=== PATIENT | male | born 1945 | race Two or more races ===

== ENCOUNTER 2017-09-23 09:25 | Outpatient (CLI) | payer OTHER ==
[~2017-09-23 09:25] MED LIST: COZAAR50 MG PO; VITAMIN; VYTORIN 10/20 M1 TAB PO
== END 2017-09-23 09:37 | disposition home or self-care (01) ==
LOC: RAD 501 09:25
DX: H25.011 Cortical age-related cataract, right eye (principal); Z98.41 Cataract extraction status, right eye

== ENCOUNTER 2017-09-24 07:33 | Outpatient (CLI) | payer OTHER | END 2017-09-24 07:43 | disposition home or self-care (01) | LOC: LAB 07:33 | DX: H25.011 Cortical age-related cataract, right eye (principal); Z98.41 Cataract extraction status, right eye ==

== ENCOUNTER 2018-04-13 13:14 | Inpatient (IN) | payer OTHER ==
[~2018-04-13] VITALS: Ht 162.6 cm; Wt 72.6 kg
[2018-04-15] MEDS ORDERED: PROTONIX40 MG PO (16:39)
[2018-04-15] MEDS ORDERED: CIPRO500 MG PO (16:39)
[2018-04-15] MEDS ORDERED: ULTRACET PO (16:39)
== END 2018-04-15 17:52 | disposition home or self-care (01) | DRG 354 ==
LOC: ER 13:14 → SURH 20:20
PROC: 0WQF0ZZ Repair Abdominal Wall, Open Approach (ICD-10-PCS; principal; 2018-04-13)
PROC: BW21ZZZ Computerized Tomography (CT Scan) of Abdomen and Pelvis (ICD-10-PCS; 2018-04-13)
DX: K42.0 Umbilical hernia with obstruction, without gangrene (principal); K56.699 Other intestinal obstruction unspecified as to partial versus complete obstruction; I11.9 Hypertensive heart disease without heart failure

== ENCOUNTER 2019-05-15 10:02 | Outpatient (CLI) | payer OTHER ==
[~2019-05-15 10:02] MED LIST changes: +CIPRO500 MG PO; +PROTONIX40 MG PO; +ULTRACET PO
== END 2019-05-15 15:00 | disposition home or self-care (01) ==
LOC: MRI 10:02
DX: G25.2 Other specified forms of tremor (principal)
CPT/HCPCS: 70551

== ENCOUNTER 2020-02-27 10:04 | Outpatient (CLI) | payer OTHER | END 2020-02-27 10:07 | disposition home or self-care (01) | LOC: RAD 10:04 | PROVIDERS: ATTEND Ophthalmology | DX: R07.89 Other chest pain (principal); Z01.811 Encounter for preprocedural respiratory examination ==

== ENCOUNTER 2020-11-01 07:50 | Outpatient (CLI) | payer OTHER | END 2020-11-01 08:30 | disposition home or self-care (01) | LOC: WOUND MED 07:50 | PROVIDERS: ATTEND Specialist | DX: L98.492 Non-pressure chronic ulcer of skin of other sites with fat layer exposed (principal) | CPT/HCPCS: A4554; A4930; A6216; A6219; G0463 ==

== ENCOUNTER 2020-11-05 12:06 | Outpatient (CLI) | payer OTHER | END 2020-11-05 12:15 | disposition home or self-care (01) | LOC: WOUND MED 12:06 | PROVIDERS: ATTEND Specialist | DX: L98.492 Non-pressure chronic ulcer of skin of other sites with fat layer exposed (principal) | CPT/HCPCS: 97602; A4554; A4930; A6216; A6219 ==

== ENCOUNTER 2020-11-08 08:15 | Outpatient (CLI) | payer OTHER | END 2020-11-08 09:00 | disposition home or self-care (01) | LOC: WOUND MED 08:15 | PROVIDERS: ATTEND Specialist | DX: L98.492 Non-pressure chronic ulcer of skin of other sites with fat layer exposed (principal) | CPT/HCPCS: 11042; A4554; A4930; A6021; A6216; A6219 ==

== ENCOUNTER 2020-11-15 08:03 | Outpatient (CLI) | payer OTHER | END 2020-11-15 08:30 | disposition home or self-care (01) | LOC: WOUND MED 08:03 | PROVIDERS: ATTEND Specialist | DX: L98.492 Non-pressure chronic ulcer of skin of other sites with fat layer exposed (principal) | CPT/HCPCS: 11042; A4554; A4930; A6021; A6216; A6219 ==

== ENCOUNTER 2020-11-22 08:10 | Outpatient (CLI) | payer OTHER | END 2020-11-22 14:07 | disposition home or self-care (01) | LOC: WOUND MED 08:10 | PROVIDERS: ATTEND Specialist | DX: L98.492 Non-pressure chronic ulcer of skin of other sites with fat layer exposed (principal) | CPT/HCPCS: 11042; A4554; A4930; A6216; A6219 ==

== ENCOUNTER 2020-12-06 08:07 | Outpatient (CLI) | payer OTHER | END 2020-12-06 09:00 | disposition home or self-care (01) | LOC: WOUND MED 08:07 | PROVIDERS: ATTEND Specialist | DX: L98.492 Non-pressure chronic ulcer of skin of other sites with fat layer exposed (principal) | CPT/HCPCS: 11042; A4554; A4930; A6212; A6216; A6219 ==

== ENCOUNTER → 2020-12-13 | Outpatient (CLI) | payer OTHER | END | disposition home or self-care (01) | LOC: WOUND MED 07:45 | PROVIDERS: ATTEND Specialist | DX: L98.492 Non-pressure chronic ulcer of skin of other sites with fat layer exposed (principal) | CPT/HCPCS: G0463; A4554; A4930; A6216 ==

== ENCOUNTER 2021-02-11 11:12 | Outpatient (CLI) | payer OTHER | END 2021-02-11 11:15 | disposition home or self-care (01) | LOC: LAB 11:12 | PROVIDERS: ATTEND Radiology Diagnostic Radiology | DX: N42.0 Calculus of prostate (principal); Z51.81 Encounter for therapeutic drug level monitoring ==

== ENCOUNTER 2021-02-11 12:01 | Outpatient (CLI) | payer OTHER | END 2021-02-11 14:14 | disposition home or self-care (01) | LOC: TOM 12:01 | DX: N42.0 Calculus of prostate (principal) | CPT/HCPCS: 72193; Q9965 ==

== ENCOUNTER 2021-11-26 11:03 | Outpatient (CLI) | payer OTHER | END 2021-11-26 11:04 | disposition home or self-care (01) | LOC: NUCLEAR 11:03 | PROVIDERS: ATTEND Internal Medicine | DX: I00 Rheumatic fever without heart involvement (principal) ==

== ENCOUNTER 2022-04-07 11:59 | Outpatient (CLI) | payer OTHER | END 2022-04-07 12:08 | disposition home or self-care (01) | LOC: RAD 11:59 | PROVIDERS: ATTEND Internal Medicine | DX: M54.17 Radiculopathy, lumbosacral region (principal) ==

== ENCOUNTER 2022-04-09 09:03 | Outpatient (CLI) | payer OTHER | END 2022-04-09 09:04 | disposition home or self-care (01) | LOC: NUCLEAR 09:03 | PROVIDERS: ATTEND Internal Medicine | DX: R00.1 Bradycardia, unspecified (principal) ==

== ENCOUNTER 2022-09-09 15:41 | Outpatient (CLI) | payer OTHER | END 2022-09-09 15:45 | disposition home or self-care (01) | LOC: RAD 15:41 | PROVIDERS: ATTEND Internal Medicine | DX: J44.1 Chronic obstructive pulmonary disease with (acute) exacerbation (principal) ==

== ENCOUNTER 2023-02-24 11:47 | Outpatient (CLI) | payer OTHER | END 2023-02-24 11:52 | disposition home or self-care (01) | LOC: RAD 11:47 | PROVIDERS: ATTEND Internal Medicine Gastroenterology | DX: K56.41 Fecal impaction (principal) ==

== ENCOUNTER 2023-04-05 08:51 | Outpatient (CLI) | payer OTHER | END 2023-04-05 09:05 | disposition home or self-care (01) | LOC: TOM 08:51 | PROVIDERS: ATTEND Internal Medicine Gastroenterology | DX: K63.5 Polyp of colon (principal) ==

== ENCOUNTER 2023-08-04 10:37 | Outpatient (CLI) | payer OTHER | END 2023-08-04 10:38 | disposition home or self-care (01) | LOC: RAD 10:37 | PROVIDERS: ATTEND Internal Medicine Hematology & Oncology | DX: C61 Malignant neoplasm of prostate (principal); R05.8 Other specified cough ==

== ENCOUNTER 2023-12-01 08:27 | Outpatient (CLI) | payer OTHER | END 2023-12-01 08:33 | disposition home or self-care (01) | LOC: TOM 08:27 | PROVIDERS: ATTEND Internal Medicine | DX: R10.9 Unspecified abdominal pain (principal) ==

== ENCOUNTER 2024-04-13 13:38 | Outpatient (CLI) | payer OTHER | END 2024-04-13 13:40 | disposition home or self-care (01) | LOC: RAD 13:38 | PROVIDERS: ATTEND Internal Medicine | DX: M54.17 Radiculopathy, lumbosacral region (principal); M16.12 Unilateral primary osteoarthritis, left hip ==

== ENCOUNTER 2024-05-15 08:43 | Outpatient (CLI) | payer OTHER ==
[2024-05-15 09:53] LABS: HEMATOCRIT 45.4 % (39.0-48.0); HEMOGLOBIN 15.9 g/dL (13-16.00); MEAN CELL VOLUME 91.6 fL (80.0-100.00); MEAN CORPUSCULAR HEMOGLOBIN 32.1 pg (27.00-32.0); PLATELET COUNT 146 K/uL (150-450); RED BLOOD COUNT 4.95 M/uL (4.00-6.00); RED CELL DISTRIBUTION WIDTH 13.1 % (11.5-14.5)
[2024-05-15 10:30] LABS: INR 0.98; PARTIAL THROMBOPLASTIN TIME 31.1 SECONDS (22.0-34.0); PROTHROMBIN TIME 10.7 SECONDS (9.0-11.5)
[2024-05-15 10:36] LABS: ALBUMIN 3.9 gm/dL (3.4-5.0); BILIRUBIN TOTAL 0.63 mg/dL (0.3-1.2); CALCIUM 9.3 mg/dL (8.5-10.1); CREATININE SERUM 1.25 mg/dL (0.70-1.30); GFR 55.72; GLOBULINA 3.5 G/DL (2.4-3.5); POTASSIUM 5.2 mEq/L (3.5-5.1); TOTAL PROTEIN 7.4 gm/dL (6.4-8.2)
[2024-05-15 11:12] LABS: COL EPI 96 SECONDS (82-175)
[2024-05-15 11:40] LABS: URINE APPEARANCE Clear; URINE BILIRRUBIN Negative (NEGATIVE); URINE BLOOD Negative; URINE COLOR Yellow; URINE GLUCOSE Negative (NEGATIVE); URINE KETONE Trace (NEGATIVE); URINE LEUKOCYTE Negative; URINE NITRATE Negative; URINE PROTEIN 30 (NEGATIVE); URINE UROBILINOGEN 0.2 E.U./dl
[2024-05-15 11:41] LABS: URINE EPITHELIAL CELLS 3.8 uL (0.0-38.8); URINE WBC 3.2 uL (0.0-23.2)
[2024-05-15 11:50] LABS: URINE RBC 1.2 uL (0.0-20.8)
== END 2024-05-15 08:44 | disposition home or self-care (01) ==
LOC: RAD 08:43
PROVIDERS: ATTEND Orthopaedic Surgery
DX: D64.9 Anemia, unspecified (principal); E88.89 Other specified metabolic disorders; D68.8 Other specified coagulation defects; N39.0 Urinary tract infection, site not specified; Z22.322 Carrier or suspected carrier of Methicillin resistant Staphylococcus aureus; E11.9 Type 2 diabetes mellitus without complications; Z76.89 Persons encountering health services in other specified circumstances; I10 Essential (primary) hypertension

== ENCOUNTER 2024-05-25 10:33 | Inpatient (IN) | payer OTHER ==
[~2024-05-25] VITALS: Ht 167.6 cm; Wt 68.0 kg
[2024-05-25] MEDS ORDERED: AVAPRO300 MG PO (11:06)
[2024-05-30] MEDS ORDERED: EPINEPHRINE HCL/PF 1 MG/ML AMPUL IR ONE (11:30)
[2024-05-30] MEDS ORDERED: KETOROLAC TROMETHAMINE 60 MG VIAL IM ONE (11:30)
[2024-05-30] MEDS ORDERED: VANCOMYCIN HCL 1,000 MG VIAL IR ONE (11:30)
[2024-05-30] MEDS ORDERED: VANCOMYCIN HCL 1,000 MG VIAL IV ONE (11:30)
[2024-05-30] MEDS ORDERED: TRANEXAMIC ACID 100MG/1ML (1000MG) AMPUL IV ONE ×2 (11:30)
[2024-05-30] MEDS ORDERED: POLYMYXIN B SULFATE 500,000 U VIAL IR ONE (11:30)
[2024-05-30] MEDS ORDERED: LIDOCAINE HCL 1%/EPINEPHRINE 20ML VIAL IJ ONE (11:30)
[2024-05-30] MEDS ORDERED: BUPIVACAINE HCL 30 ML VIAL IJ ONE (11:30)
[2024-05-30] MEDS ORDERED: ONDANSETRON 4 MG TAB.RAPDIS PO PRN (13:30)
[2024-05-30] MEDS ORDERED: TRAMADOL HCL 50 MG TABLET PO PRN (13:30)
[2024-05-30] MEDS ORDERED: ONDANSETRON HCL 2 MG/ML VIAL IV PRN (13:30)
[2024-05-30] MEDS ORDERED: PROMETHAZINE HCL 50 MG/ML AMPUL IM PRN (13:30)
[2024-05-30] MEDS ORDERED: SODIUM CHLORIDE 0.45 % 1,000 ML IV SCH (13:30)
[2024-05-30] MEDS ORDERED: MEPERIDINE HCL/PF 50 MG/ML VIAL IM PRN (13:30)
[2024-05-30] MEDS ORDERED: PANTOPRAZOLE SODIUM 40 MG TABLET.DR PO SCH (13:31)
[2024-05-30] MEDS ORDERED: MORPHINE SULFATE 4 MG/ML VIAL IV ONE (14:00)
[2024-05-30] MEDS ORDERED: CELECOXIB 200 MG CAPSULE PO SCH (17:00)
[2024-05-30] MEDS ORDERED: ACETAMINOPHEN 325 MG TABLET PO SCH (17:00)
[2024-05-30] MEDS ORDERED: ATORVASTATIN CALCIUM 40 MG TABLET PO SCH (17:00)
[2024-05-30 17:45] VITALS: BP 143/75; O2SAT 99
[2024-05-30] MEDS ORDERED: VANCOMYCIN HCL 1,000 MG VIAL IV SCH (21:00)
[2024-05-30] MEDS ORDERED: KETOROLAC TROMETHAMINE 10 MG TABLET PO SCH (21:00)
[2024-05-31 00:43] VITALS: BP 125/71; O2SAT 95
[2024-05-31 06:08] LABS: HEMATOCRIT 36.9 % (39.0-48.0); HEMOGLOBIN 12.5 g/dL (13-16.00); MEAN CELL VOLUME 91.8 fL (80.0-100.00); MEAN CORPUSCULAR HEMOGLOBIN 31.1 pg (27.00-32.0); MEAN CORPUSCULAR HGB CONC 33.9 g/dl (32.0-36.0); RED BLOOD COUNT 4.02 M/uL (4.00-6.00); RED CELL DISTRIBUTION WIDTH 12.1 % (11.5-14.5)
[2024-05-31 06:30] LABS: PLATELET COUNT 122 K/uL (150-450)
[2024-05-31 07:02] LABS: ALBUMIN 2.9 gm/dL (3.4-5.0); BILIRUBIN TOTAL 1.01 mg/dL (0.3-1.2); CALCIUM 8.2 mg/dL (8.5-10.1); CREATININE SERUM 1.21 mg/dL (0.70-1.30); GFR 57.85; GLOBULINA 2.5 G/DL (2.4-3.5); MAGNESIUM 2.3 mg/dL (1.8-2.4); POTASSIUM 4.11 mEq/L (3.5-5.1); TOTAL PROTEIN 5.4 gm/dL (6.4-8.2)
[2024-05-31 08:14] VITALS: BP 134/69; O2SAT 97
[2024-05-31] MEDS ORDERED: IRBESARTAN 300 MG TABLET PO SCH (09:00)
[2024-05-31] MEDS ORDERED: RIVAROXABAN 10 MG TAB PO SCH (09:00)
[2024-05-31 16:45] VITALS: BP 123/68; O2SAT 97
[2024-06-01 01:06] VITALS: BP 123/68; O2SAT 96
[2024-06-01 07:30] LABS: HEMATOCRIT 35.1 % (39.0-48.0); HEMOGLOBIN 12.2 g/dL (13-16.00); MEAN CELL VOLUME 92.8 fL (80.0-100.00); MEAN CORPUSCULAR HEMOGLOBIN 32.2 pg (27.00-32.0); MEAN CORPUSCULAR HGB CONC 34.7 g/dl (32.0-36.0); RED BLOOD COUNT 3.78 M/uL (4.00-6.00); RED CELL DISTRIBUTION WIDTH 12.3 % (11.5-14.5)
[2024-06-01 07:46] LABS: PLATELET COUNT 117 K/uL (150-450)
[2024-06-01 08:27] VITALS: BP 164/79; O2SAT 99
[2024-06-01] MEDS ORDERED: SENNA/DOCUSATE SODIUM 1 TAB TABLET PO SCH (09:00)
[2024-06-01 09:04] VITALS: BP 140/70
== END 2024-06-01 09:34 | disposition home or self-care (01) | DRG 470 ==
LOC: O/R 05-30 06:51 → SURH 05-30 07:00 → SURG 05-30 12:46 → MEDI 05-30 16:32
PROVIDERS: Internal Medicine; ADMIT Orthopaedic Surgery; ATTEND Orthopaedic Surgery
PROC: 0SRB0JZ Replacement of Left Hip Joint with Synthetic Substitute, Open Approach (ICD-10-PCS; principal; 2024-05-30 07:00)
DX: M16.12 Unilateral primary osteoarthritis, left hip (principal); I10 Essential (primary) hypertension; D64.9 Anemia, unspecified; D69.6 Thrombocytopenia, unspecified

== ENCOUNTER 2024-06-14 08:39 | Outpatient (CLI) | payer OTHER ==
[~2024-06-14 08:39] MED LIST changes: +AVAPRO300 MG PO
== END 2024-06-14 08:55 | disposition home or self-care (01) ==
LOC: RAD 08:39
PROVIDERS: ATTEND Orthopaedic Surgery
DX: Z96.642 Presence of left artificial hip joint (principal)

== ENCOUNTER → 2024-10-25 09:36 | Outpatient (CLI) | payer OTHER | END | disposition home or self-care (01) | LOC: NUCLEAR 10-19 13:15 | PROVIDERS: ATTEND Orthopaedic Surgery | DX: M81.0 Age-related osteoporosis without current pathological fracture (principal) ==

== ENCOUNTER → 2025-02-05 12:05 | Outpatient (CLI) | payer OTHER ==
[2025-02-05 13:44] LABS: ALBUMIN 3.7 gm/dL (3.4-5.0); BILIRUBIN TOTAL 0.27 mg/dL (0.3-1.2); CALCIUM 9.3 mg/dL (8.5-10.1); CREATININE SERUM 1.46 mg/dL (0.70-1.30); GFR 46.46; GLOBULINA 3.4 G/DL (2.4-3.5); MAGNESIUM 2.5 mg/dL (1.8-2.4); PHOSPHOROUS 2.4 mg/dL (2.5-4.9); POTASSIUM 4.44 mEq/L (3.5-5.1); TOTAL PROTEIN 7.1 gm/dL (6.4-8.2)
[2025-02-07 11:12] LABS: CALCIUM IONIZED 4.9 mg/dL (4.5-5.6)
== END | disposition home or self-care (01) ==
LOC: LAB 12:05
PROVIDERS: ATTEND Orthopaedic Surgery
DX: E55.9 Vitamin D deficiency, unspecified (principal); M85.9 Disorder of bone density and structure, unspecified; E56.1 Deficiency of vitamin K; E21.3 Hyperparathyroidism, unspecified; E88.89 Other specified metabolic disorders; M81.8 Other osteoporosis without current pathological fracture

== ENCOUNTER 2025-03-21 09:35 | Outpatient (CLI) | payer OTHER | END 2025-03-21 09:51 | disposition home or self-care (01) | LOC: SONOGRAMA 09:35 | DX: N18.31 Chronic kidney disease, stage 3a (principal) ==